=== PATIENT | male | born 1925 | race African-American/Black ===

== ENCOUNTER 2016-03-25 11:40 | Outpatient (CLI) | payer MEDICARE ==
[2016-03-25 13:16] LABS: #Basophils 0.1 thou/uL (0.0-0.2); #Eosinphils 0.5 thou/uL (0.0-0.7); #Lymphocytes 2.2 thou/uL (1.20-3.40); #Monocytes 0.8 thou/uL (0.11-0.59); #Neutrophils 5.2 thou/uL (1.40-6.50); %Basophils 0.8 % (0.0-1.0); %Eosinophils 5.3 % (0.0-10.0); %Lymphocytes 25.4 % (21.0-51.0); %Monocytes 8.8 % (0.0-10.0); Hematocrit 42.9 % (42.0-52.0); Mean Platelet Volume 8.2 fL (7.4-10.4); White Blood Cell (WBC) Count 8.6 thou/uL (4.8-10.8)
[2016-03-25 13:35] LABS: Hemoglobin A1c 5.5 % (4.0-6.0)
[2016-03-25 13:37] LABS: ALT (SGPT) Less than 6 U/L (0-55); AST (SGOT) 11 U/L (5-34); Alkaline Phosphatase 94 U/L (40-150); Anion Gap 14 mmol/L (10-20); BUN (Urea Nitrogen) 21 mg/dL (8.4-25.7); Bilirubin, Direct 0.2 mg/dL (0.1-0.3); Bilirubin, Total 0.4 mg/dL (0.2-1.2); Calc. Creatinine Clearance 0 mL/min (70-130); Calcium 9.5 mg/dL (7.8-10.44); Carbon Dioxide 23 mmol/L (23-31); Chloride 108 mmol/L (98-107); Estimated GFR-MDRD 42; LDL Cholesterol, Calculated 69 mg/dL; Protein, Total 7.4 g/dL (5.8-8.1)
== END 2016-03-25 11:41 | disposition home or self-care (01) ==
LOC: NAVSJIPCSP 11:40
PROVIDERS: ATTEND Family Medicine
DX: I12.9 Hypertensive chronic kidney disease with stage 1 through stage 4 chronic kidney disease, or unspecified chronic kidney disease (principal); N18.1 Chronic kidney disease, stage 1; D50.9 Iron deficiency anemia, unspecified; Z79.899 Other long term (current) drug therapy
CPT/HCPCS: 36415; 80048; 80061; 80076; 83036; 84443; 85025

== ENCOUNTER 2016-11-03 09:32 | Outpatient (CLI) | payer MEDICARE, MEDICAID ==
[2016-11-03 17:45] LABS: #Basophils 0.1 thou/uL (0.0-0.2); #Eosinphils 0.4 thou/uL (0.0-0.7); #Lymphocytes 2.3 thou/uL (1.20-3.40); #Monocytes 0.6 thou/uL (0.11-0.59); #Neutrophils 4.5 thou/uL (1.40-6.50); %Eosinophils 4.8 % (0.0-10.0); %Lymphocytes 28.9 % (21.0-51.0); %Neutrophils 57.3 % (42.0-75.0); Hemoglobin 11.9 g/dL (14.0-18.0); Mean Corpuscular HGB CONC 30.5 g/dL (32.0-36.0); Mean Corpuscular Hemoglobin 29.7 pg (27.0-31.0); Mean Corpuscular Volume 97.4 fl (80.0-94.0); Mean Platelet Volume 8.1 fL (7.4-10.4); Platelet Count 219 thou/uL (130-400); RBC Distribution Width 15.8 % (11.5-14.5); White Blood Cell (WBC) Count 7.9 thou/uL (4.8-10.8)
[2016-11-03 19:24] LABS: ALT (SGPT) 6 U/L (8-55); AST (SGOT) 10 U/L (5-34); Albumin 4.1 g/dL (3.4-4.8); Alkaline Phosphatase 92 U/L (40-150); Anion Gap 16 mmol/L (10-20); BUN (Urea Nitrogen) 31 mg/dL (8.4-25.7); Bilirubin, Direct 0.2 mg/dL (0.1-0.3); Bilirubin, Total 0.4 mg/dL (0.2-1.2); Calc. Creatinine Clearance 0 mL/min (70-130); Calcium 9.5 mg/dL (7.8-10.44); Carbon Dioxide 23 mmol/L (23-31); Chloride 108 mmol/L (98-107); Cholesterol 102 mg/dl (< 200 Desired); Estimated GFR-MDRD 33; Glucose 96 mg/dL (83-110); HDL Cholesterol 34 mg/dL (>60 Neg Risk); LDL Cholesterol, Calculated 57 mg/dL; Potassium 4.4 mmol/L (3.5-5.1); Sodium 143 mmol/L (136-145); Triglycerides 56 mg/dL (Less than 150)
[2016-11-03 20:21] LABS: Hemoglobin A1c 5.7 % (4.0-6.0)
== END 2016-11-03 09:33 | disposition home or self-care (01) ==
LOC: NAVSJIPCSP 09:32
PROVIDERS: ATTEND Nurse Practitioner Family
DX: Z51.81 Encounter for therapeutic drug level monitoring (principal); Z79.899 Other long term (current) drug therapy
CPT/HCPCS: 36415; 80048; 80061; 80076; 83036; 84443; 85025